=== PATIENT | male | born 1955 | race African-American/Black ===

== ENCOUNTER → 2020-12-08 | Outpatient (CLI) | payer MEDICARE, OTHER | END | disposition home or self-care (01) | LOC: MRI 09:20 | PROVIDERS: ATTEND Neurological Surgery | DX: M43.16 Spondylolisthesis, lumbar region (principal); M48.061 Spinal stenosis, lumbar region without neurogenic claudication; M51.37 Other intervertebral disc degeneration, lumbosacral region; M50.322 Other cervical disc degeneration at C5-C6 level; M48.02 Spinal stenosis, cervical region | CPT/HCPCS: 72141; 72148 ==

== ENCOUNTER → 2020-12-22 | Outpatient (CLI) | payer MEDICARE, OTHER ==
[~2020-12-22] MED LIST: DEXAMETHASONE 4MG/ML 1ML VIAL ONE; FENTANYL CITRATE/PF 50MCG/ML 2ML VIAL ONE; GABA-533 MT; GLYCOPYRROLATE 0.2 MG/ML 2ML VIAL ONE; MIDAZOLAM HCL 2 MG/2 ML VIAL ONE; NEOSTIGMINE METHYLSULFATE 1MG/ML 10 ML VIAL ONE; ONDANSETRON HCL 4MG/2ML INJ ONE; PROPOFOL 200MG/20ML VIAL IV ONE; ROCURONIUM BROMIDE 10MG/ML VIAL 5ML IV ONE
== END | disposition home or self-care (01) ==
LOC: LAB 11:40
PROVIDERS: ATTEND Neurological Surgery
DX: Z01.812 Encounter for preprocedural laboratory examination (principal); Z20.822 Contact with and (suspected) exposure to COVID-19
CPT/HCPCS: 87426

== ENCOUNTER 2020-12-23 11:35 | Inpatient (IN) | payer MEDICARE, MEDICAID, OTHER ==
[~2020-12-23] VITALS: Ht 182.9 cm; Wt 70.3 kg
[2020-12-23] MEDS ORDERED: SODIUM CHLORIDE 0.9% 1000ML BAG (SEPSIS BOLUS) IV ONE (12:00)
[2020-12-23] MEDS ORDERED: VANCOMYCIN 1 G PREMIX 200 ML IV SCH (12:15)
[2020-12-23] MEDS ORDERED: PIPERACILLIN/TAZOBACTAM 3.375GM/50ML PREMIX IV NR (12:15)
[2020-12-23 12:26] LABS: HEMATOCRIT. 40.8 % (42.0-52.0); HEMOGLOBIN. 13.4 g/dL (14.0-18.0); LYMPHOCYTES % 18.1 % (20.0-50.0); MEAN CORPUSCULAR HEMOGLOBIN 25.4 pg (28.0-32.0); MEAN CORPUSCULAR VOLUME 77.7 fL (80.0-94.0); MEAN PLATELET VOLUME 7.5 fl (7.4-10.4); MONOCYTES % 5.3 % (2.0-8.0); NEUTROPHILS % 74.6 % (40.0-76.0); PLATELET 340 x1000/uL (130-400); RED BLOOD CELL COUNT 5.25 mill/uL (4.7-6.1)
[2020-12-23 12:36] LABS: CHLORIDE 105 mEq/L (98-107)
[2020-12-23 12:38] LABS: PARTIAL THROMBOPLASTIN TIME 33.3 sec (23.4-31.0); PROTHROMBIN TIME 10.5 sec (9.6-11.0)
[2020-12-23 12:42] LABS: C REACTIVE PROTEIN QUANT 3.8 mg/L (0.0-3.0)
[2020-12-23] MEDS ORDERED: BACITRACIN 50,000 UNITS/VIAL ONE (13:41)
[2020-12-23] MEDS ORDERED: THROMBIN (BOVINE) 5000 UNITS/VIAL TOP ONE (13:41)
[2020-12-23] MEDS ORDERED: BACITRACIN 15GM TUBE TOP ONE (14:51)
[2020-12-23] MEDS ORDERED: HYDROMORPHONE HCL/PF 2MG/ML CPJ ONE (15:32)
[2020-12-23] MEDS ORDERED: IPRATROPIUM/ALBUTEROL 0.5-3(2.5)MG/3ML NEB HHN PRN (18:45)
[2020-12-23 20:30] VITALS: BP 97/61
[2020-12-23] MEDS ORDERED: MORPHINE SULFATE 2 MG/ML CPJ (NOT FOR IM USE) IV PRN (21:00)
[2020-12-23] MEDS ORDERED: ONDANSETRON HCL 4MG/2ML INJ IV PRN (21:00)
[2020-12-23] MEDS ORDERED: PIPERACILLIN/TAZOBACTAM 3.375 G/VIAL IV SCH (22:00)
[2020-12-23 22:30] VITALS: BP 97/61
[2020-12-24] VITALS (7 sets, daily range): BP systolic 95–145; BP diastolic 46–99
[2020-12-24] MEDS ORDERED: VANCOMYCIN 1250MG in DEXTROSE 5% WATER 250ML IV NR (01:30)
[2020-12-24] MEDS: PIPERACILLIN/TAZOBACTAM 3.375 G in DEXT 5% WATER 100 ML IV SCH ×3 (02:04→17:06)
[2020-12-24] MEDS: DEXT 5%/LACTATED RINGERS 1,000 ML IV SCH ×3 (02:11→18:31)
[2020-12-24] MEDS ORDERED: GABA-533 MT (07:37)
[2020-12-24] MEDS: VANCOMYCIN 1 G PREMIX 200 ML IV SCH ×2 (11:21→21:42)
[2020-12-24] MEDS: GABAPENTIN 300MG CAPSULE PO SCH ×2 (14:16→17:06)
[2020-12-25] VITALS: BP 107/60
[2020-12-25] MEDS: PIPERACILLIN/TAZOBACTAM 3.375 G in DEXT 5% WATER 100 ML IV SCH ×4 (01:25→23:24)
[2020-12-25 04:00] VITALS: BP 107/64
[2020-12-25] MEDS: DEXT 5%/LACTATED RINGERS 1,000 ML IV SCH ×2 (05:00→14:36)
[2020-12-25 07:12] LABS: CHLORIDE 107 mEq/L (98-107)
[2020-12-25 07:31] LABS: LDL CHOLESTEROL 80 mg/dL (5-100)
[2020-12-25 07:32] LABS: HDL CHOLESTEROL 34 mg/dL (40-59)
[2020-12-25 08:00] VITALS: BP 101/50
[2020-12-25] MEDS: GABAPENTIN 300MG CAPSULE PO SCH ×3 (11:26→17:00)
[2020-12-25] MEDS: VANCOMYCIN 1 G PREMIX 200 ML IV SCH ×2 (11:27→21:48)
[2020-12-25 12:00] VITALS: BP 109/49
[2020-12-25 20:00] VITALS: BP 98/65
[2020-12-26] VITALS: BP 101/47
[2020-12-26] MEDS: DEXT 5%/LACTATED RINGERS 1,000 ML IV SCH ×3 (01:30→21:50)
[2020-12-26 04:00] VITALS: BP 103/51
[2020-12-26 07:18] LABS: CHLORIDE 107 mEq/L (98-107)
[2020-12-26 07:27] LABS: BASOPHILS % 0.6 % (0.0-2.0); EOSINOPHILS % 4.5 % (0.0-5.0); HEMATOCRIT. 36.8 % (42.0-52.0); HEMOGLOBIN. 11.8 g/dL (14.0-18.0); LYMPHOCYTES % 22.8 % (20.0-50.0); MEAN CORPUSCULAR HEMOGLOBIN 25.2 pg (28.0-32.0); MEAN CORPUSCULAR VOLUME 78.8 fL (80.0-94.0); MEAN PLATELET VOLUME 7.5 fl (7.4-10.4); MONOCYTES % 8.7 % (2.0-8.0); NEUTROPHILS % 63.4 % (40.0-76.0); PLATELET 319 x1000/uL (130-400); RED BLOOD CELL COUNT 4.67 mill/uL (4.7-6.1); RED CELL DISTRIBUTION WIDTH 14.4 % (11.6-14.6)
[2020-12-26] MEDS: PIPERACILLIN/TAZOBACTAM 3.375 G in DEXT 5% WATER 100 ML IV SCH ×3 (09:15→21:49)
[2020-12-26] MEDS: GABAPENTIN 300MG CAPSULE PO SCH ×3 (09:15→16:42)
[2020-12-26] MEDS: VANCOMYCIN 1 G PREMIX 200 ML IV SCH ×2 (11:14→21:49)
[2020-12-26] MEDS: HYDROCODONE/ACETAMINOPHEN 5/325MG TABLET PO PRN ×2 (13:51→21:49)
[2020-12-26 16:07] VITALS: BP 99/43
[2020-12-26] MEDS ORDERED: SULF-288 MT (18:57)
[2020-12-26] MEDS ORDERED: AMOX1TAB16 MT (18:57)
[2020-12-26 20:00] VITALS: BP 112/60
[2020-12-27] VITALS: BP 110/50
[2020-12-27] MEDS: PIPERACILLIN/TAZOBACTAM 3.375 G in DEXT 5% WATER 100 ML IV SCH ×2 (03:14→09:00)
[2020-12-27 04:00] VITALS: BP 100/52
[2020-12-27] MEDS: DEXT 5%/LACTATED RINGERS 1,000 ML IV SCH (07:00)
[2020-12-27 08:00] VITALS: BP 104/43
[2020-12-27] MEDS: VANCOMYCIN 1 G PREMIX 200 ML IV SCH (10:00)
[2020-12-27] MEDS: GABAPENTIN 300MG CAPSULE PO SCH (10:47)
[2020-12-27] MEDS: HYDROCODONE/ACETAMINOPHEN 5/325MG TABLET PO PRN (10:48)
[2020-12-27 10:54] VITALS: BP 104/53
== END 2020-12-27 11:16 | disposition home or self-care (01) | DRG 580 ==
LOC: ER 11:35 → OR 15:04 → EDBEDREQ 15:06 → CANBEDREQ 16:48 → 6EST 20:25
PROVIDERS: ADMIT Internal Medicine; ATTEND Internal Medicine
PROC: 0J970ZZ Drainage of Back Subcutaneous Tissue and Fascia, Open Approach (ICD-10-PCS; principal; 2020-12-23)
PROC: 4A11X4Z Monitoring of Peripheral Nervous Electrical Activity, External Approach (ICD-10-PCS; 2020-12-23)
DX: L02.212 Cutaneous abscess of back [any part, except buttock and flank] (principal); G82.20 Paraplegia, unspecified; L03.90 Cellulitis, unspecified; M47.814 Spondylosis without myelopathy or radiculopathy, thoracic region; E78.5 Hyperlipidemia, unspecified; E78.00 Pure hypercholesterolemia, unspecified; G62.9 Polyneuropathy, unspecified; I10 Essential (primary) hypertension; M62.89 Other specified disorders of muscle; M47.812 Spondylosis without myelopathy or radiculopathy, cervical region; M19.90 Unspecified osteoarthritis, unspecified site; G89.29 Other chronic pain; F17.210 Nicotine dependence, cigarettes, uncomplicated; Z86.73 Personal history of transient ischemic attack (TIA), and cerebral infarction without residual deficits; Z79.2 Long term (current) use of antibiotics; Z79.899 Other long term (current) drug therapy; Z82.49 Family history of ischemic heart disease and other diseases of the circulatory system; J44.9 Chronic obstructive pulmonary disease, unspecified
CPT/HCPCS: 36415; 71045; 72157; 80048; 80053; 80061; 80202; 83605; 84145; 85025; 86140; 87070; 87075; 87426; 93005; 96374; 99285; J1100; J1170; J2250; J2270; J2405; J2543; J2704; J2710; J3010; J3370; J3490; J7030; J7040; J7060; J7121